=== PATIENT | female | born 2005 | race Caucasian/White ===

== ENCOUNTER 2024-10-24 13:51 | Emergency (ER) | payer SELFPAY ==
[2024-10-24 13:52] VITALS: BP 108/68; PULSE 92; RESP 18; TEMP 36.8; O2SAT 97; BMI 21.9
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
[2024-10-24] MEDS: iohexol 350 mg/mL 500 mL Btl (per mL) IV (14:35)
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
[2024-10-24] MEDS: morphine 4 mg/mL SDV 1 mL IVP (14:59)
[2024-10-24] MEDS: ondansetron 2 mg/ML SDV 2 mL 4 MG IVP (14:59)
[2024-10-24 16:03] VITALS: BP 108/68; PULSE 94; O2SAT 98
== END 2024-10-24 16:04 | disposition home or self-care (01) ==
PROVIDERS: Emergency Provider Emergency Medicine
DX: S40.021A Contusion of right upper arm, initial encounter (principal); V89.2XXA Person injured in unspecified motor-vehicle accident, traffic, initial encounter
CPT/HCPCS: 70450; 71260; 72125; 73080; 73090; 74177; 96374; 96375; 99285; J2270; J2405